=== PATIENT | male | born 1945 | race Caucasian/White ===

== ENCOUNTER → 2016-03-17 | Outpatient (CLI) | payer MEDICARE ==
--- NOTE | 2016-03-19 11:46 | SLEEPCENT ---
DATE OF PROCEDURE: 03/17/2016 ORDERED BY: Chilo Garcia DO Nocturnal polysomnography was performed due to concern for the obstructive sleep apnea syndrome in this patient with a history of excessive somnolence, comorbidities of ischemic heart disease and history of CVA with advanced obstructive lung disease. 7 hours and 55 minutes of data were reviewed. There were 294 minutes of sleep identified. Sleep latency was prolonged at 71 minutes. Rapid eye movement (REM) was prolonged at 188 minutes. Sleep architecture improved late in the study. Overall sleep efficiency was 62.8%. The patient's EKG showed a sinus rhythm with an average heart rate of 52 beats per minute. EEG showed normal waveforms for awake and sleep. There were 92 respiratory events identified of 10 seconds in duration or greater for an apnea hypopnea index of 18.7. Having clearly established the presence of obstructive sleep apnea syndrome early in the study, testing was stopped for the application of pressure therapy. The patient was fit with a [employer] Quattro full face mask of small size. 4 cm of water pressure were applied to the circuit and the lights were extinguished. Shortly after initiation of continuous positive airway pressure (CPAP), hypoventilatory desaturations prompted the addition of supplemental oxygen to the circuit. Best sleep was seen on a CPAP pressure of +9 with 2 liters of oxygen bled through the system to address desaturations. Significant limb activity persisted despite pressure therapy. Limb movement arousal index however, was only 5.9. IMPRESSION: Severe obstructive sleep apnea syndrome (G47.33). Apnea hypopnea index 18.7. RECOMMENDATION: Nightly use of pressure therapy at 9 cm of water with 2 liters of oxygen bled through the system to address nocturnal oxygen desaturations.
== END ==
LOC: M SLEEP 19:40
PROVIDERS: ATTEND Internal Medicine Pulmonary Disease
DX: R40.0 Somnolence (principal)

== ENCOUNTER → 2021-08-08 | Outpatient (CLI) | payer MEDICARE | LOC: M SLEEP 20:00 | PROVIDERS: ATTEND Internal Medicine Pulmonary Disease | DX: G47.33 Obstructive sleep apnea (adult) (pediatric) (principal) ==